=== PATIENT | male | born 1955 | race African-American/Black ===

== ENCOUNTER 2020-08-06 00:50 | Inpatient (IN) | payer OTHER, MEDICAID ==
[~2020-08-06] VITALS: Ht 170.2 cm; Wt 81.9 kg
--- NOTE | 2020-08-06 00:50 | NUR ---
Telemetry admit from ER JOSEF TRAN admitted to Telemetry unit after report received from GRAHAM Brown from [facility]. Patient oriented to Maryellen Messina, primary RN, unit, room, bed, and unit policies regarding patient care and visiting hours. Patient now refusing continuous telemetry monitoring, tele box # and telemetry reading on arrival to unit is . Patient placed on bedside oxygen, weighed by bedscale and encouraged to call if they need something. All questions and concerns addressed, patient verbalized understanding. Note:
[2020-08-06] MEDS ORDERED: DOCUSATE SOD 100 MG CAP PO PRN (01:15)
[2020-08-06] MEDS ORDERED: NITROGLYCERIN 0.4 MG SL TAB SL PRN (01:15)
[2020-08-06] MEDS ORDERED: MILK OF MAGNESIA 30ML SUSP PO PRN (01:15)
[2020-08-06] MEDS ORDERED: TEMAZEPAM 15 MG CAP PO PRN (01:15)
[2020-08-06] MEDS ORDERED: MORPHINE SULF INJ 2 MG/ML SYRINGE 1ML IV PRN ×2 (01:15)
[2020-08-06] MEDS ORDERED: DEXTROSE (50%) 50ML SYRG IV PRN (01:15)
[2020-08-06 02:00] VITALS: BP 149/72
[2020-08-06] MEDS ORDERED: SOD CHL 0.45% 1,000 ML IV SCH (02:00)
[2020-08-06] MEDS ORDERED: hydrALAZINE HCL 20 MG/ML VL IV SCH (02:00)
--- NOTE | 2020-08-06 02:00 | NUR ---
Patient refusing to sign consents at this time. EKG not done due to patient refusing procedure. Care continued.
[2020-08-06] MEDS ORDERED: DYA375C PO (02:28)
[2020-08-06] MEDS ORDERED: METF-370 PO (02:28)
[2020-08-06] MEDS ORDERED: BENA40TA7 PO (02:28)
[2020-08-06] MEDS ORDERED: hydrALAZINE HCL 20 MG/ML VL IV PRN (02:30)
[2020-08-06] MEDS ORDERED: INFLUENZA QUAD 2020-2021 0.5 ML SYRG IM ONE (02:30)
--- NOTE | 2020-08-06 02:30 | NUR ---
Patient lying comfortably in bed, HOB>30, watching TV. Patient refusing blood draw at this time. Patient informed/ re-educated regarding the importance of the procedures that needs to be done, patient still refused. Care continued.
[2020-08-06 05:00] VITALS: BP 138/70
[2020-08-06] MEDS: FUROSEMIDE 20 MG/2 ML VIAL IV SCH ×2 (06:04→17:56)
--- NOTE | 2020-08-06 06:05 | NUR ---
Blood drawn via central line. Stenotypist sent blood to lab right away per request for patient pre-op scheduled today at 0800. Care continued.
[2020-08-06] MEDS: InsuLIN REG 1unit/0.01ml Soln (100units/ml) SC SCH ×4 (06:53→22:20)
--- NOTE | 2020-08-06 06:59 | NUR ---
Called lab to follow-up since blood drawn was not processed yet. Spoke to Rachel, updated her that patient is pre-op, surgery is scheduled today at 0800. Rachel verbalized understanding. Report will be given to oncoming RN.
[2020-08-06] MEDS ORDERED: ACCU-CHEK COMFORT CURVE STRIP VI SCH (07:00)
[2020-08-06 07:22] LABS: INR 1.03 (0.9-1.15); Partial Thromboplastin Time 29.3 sec (23.0-31.2)
[2020-08-06 07:25] LABS: Basophils # (auto) 0 10 ^3/uL (0-0.2); Basophils % (auto) 1.1 % (0.0-2.0); Eosinophils # (auto) 0.1 10 ^3/uL (0-0.8); Eosinophils % (auto) 2.4 % (0.0-7.0); Hematocrit 39.4 % (41.0-53.0); Hemoglobin 13.6 g/dL (13.5-17.5); Lymphocytes # (auto) 1.8 10 ^3/uL (0.4-5.4); Lymphocytes % (auto) 40.3 % (10.0-50.0); Mean Corpuscular Hemoglobin 33.2 pg (28.0-32.0); Mean Corpuscular Hgb Conc. 34.5 g/dL (32.0-36.0); Mean Corpuscular Volume 96.3 fL (80.0-100.0); Monocytes # (auto) 0.4 10 ^3/uL (0-1.3); Monocytes % (auto) 8.2 % (0.0-12.0); Neutrophils # (auto) 2.1 10 ^3/uL (1.6-8.6); Nucleated Red Blood Cells % 0.1 %; Platelet Count (auto) 183 10^3/uL (140-450); Red Blood Cells 4.09 10^6/uL (4.5-5.90); Red Cell Distribution Width 15.2 % (11.8-14.3); White Blood Cell 4.5 10^3/uL (4.4-10.8)
--- NOTE | 2020-08-06 07:30 | NUR ---
Opening Shift Note Assumed care of patient, awake and alert. Respirations are even and unlabored. No S/S of distress/SOB or pain. Bed is low, locked with 2x side rails up. Call light is within reach. Instructed on POC and to call for assist PRN, will continue to monitor for changes Q1hr and PRN.
--- NOTE | 2020-08-06 07:32 | NUR ---
Patient off unit Patient taken to cathode washer for scheduled procedure with Dr. Manuelito Young. No distress noted upon departure.
[2020-08-06 07:54] LABS: Calcium 8.2 mg/dL (8.5-10.1); Potassium 3.5 mmol/L (3.5-5.1)
[2020-08-06 07:56] LABS: BUN/Creatinine Ratio 16.3
[2020-08-06] MEDS ORDERED: IOHEXOL 350 MG/ML 100ML IJ ONE (08:13)
[2020-08-06] MEDS ORDERED: MIDAZOLAM HCL 1MG/1ML-2 ML VIAL ONE (08:13)
[2020-08-06] MEDS ORDERED: LIDOCAINE 2%HCL (LOCAL ANESTH.) INJ 20ML MDV ONE ×3 (08:13→08:37)
[2020-08-06] MEDS ORDERED: SODIUM CHL 0.9% 50 ML ONE ×2 (08:13→09:32)
[2020-08-06] MEDS ORDERED: ANGIOMAX 250 MG VIAL IV ONE ×2 (08:13→09:32)
[2020-08-06] MEDS ORDERED: fentaNYL CITRATE 100 MCG/2 ML VL ONE ×2 (08:13→09:41)
[2020-08-06] MEDS ORDERED: IODIXANOL 320MG/ML 100ML BTL IV ONE ×2 (08:22→09:50)
[2020-08-06] MEDS ORDERED: HEPARIN SODIUM (PORCINE) 5000 UNITS/ML 1ML VIAL ONE (08:55)
[2020-08-06] MEDS ORDERED: VERAPAMIL 2.5MG/ML INJ 2ML VIAL IV ONE (08:55)
[2020-08-06] MEDS ORDERED: ATROPINE SULF 1 MG/10ml SYR ONE (09:01)
[2020-08-06] MEDS ORDERED: ASPirin 325 MG TAB ONE (09:58)
[2020-08-06] MEDS ORDERED: CLOPIDOGREL 300 MG TAB ONE (09:58)
[2020-08-06] MEDS ORDERED: VANCOMYCIN 1GM/250ML 250 ML IV ONE ×2 (10:30→10:34)
[2020-08-06] MEDS ORDERED: METF-929 PO (11:04)
--- NOTE | 2020-08-06 11:45 | NUR ---
Patient back on unit S/p LHC with Carlee Young. Noted incision to right groin with dressing C/D/I. Also noted incision to right wrist with vasc band in place. Patient alert and oriented. Bed is low, locked with 2 side rails up. Call light is within reach. This nurse to round Q1hr and PRN.
--- NOTE | 2020-08-06 11:50 | NUR ---
[facility] to send up [facility].
[2020-08-06] MEDS: SOD CHL 0.45% 1,000 ML IV SCH (11:56)
[2020-08-06] MEDS: ACCU-CHEK COMFORT CURVE STRIP VI SCH ×3 (12:09→22:13)
[2020-08-06] MEDS: NIFEdipine ER 30 MG TAB PO SCH ×2 (12:09→22:06)
[2020-08-06] MEDS: FLUTICASONE PROP NASAL SPR 0.05 % (50MCG) 16GM EACHNOSTRI SCH ×2 (12:55→22:05)
[2020-08-06 13:00] VITALS: BP 164/60
--- NOTE | 2020-08-06 13:45 | NUR ---
Vasc band Vasc band completely deflated. Noted incision to right wrist. No bleeding/hematoma noted. Placed gauze with tegaderm. Also noted incision to right groin. Dressing C/D/I. Patient aware of restrictions. This nurse to round Q1hr and PRN.
[2020-08-06 17:00] VITALS: BP 152/66
--- NOTE | 2020-08-06 19:00 | NUR ---
Opening Shift Note Assumed care of patient, awake and alert. No S/S of distress/SOB or pain. Instructed on POC and to call for assist PRN, will continue to monitor for changes Q1hr and PRN.
--- NOTE | 2020-08-06 19:13 | NUR ---
MRSA swab Sent to lab via bullet system by this RN.
[2020-08-06] MEDS: HYDROcodone-ACET 5/325MG TAB PO PRN (19:54)
[2020-08-06 22:00] VITALS: BP 119/60
[2020-08-07] MEDS: HYDROcodone-ACET 5/325MG TAB PO PRN ×3 (00:53→20:07)
[2020-08-07] MEDS: SOD CHL 0.45% 1,000 ML IV SCH (01:03)
[2020-08-07 05:33] VITALS: BP 133/52
[2020-08-07 06:26] LABS: Potassium 3.6 mmol/L (3.5-5.1)
[2020-08-07 06:32] LABS: BUN/Creatinine Ratio 15.8; Calcium 8.4 mg/dL (8.5-10.1)
[2020-08-07] MEDS: FUROSEMIDE 20 MG/2 ML VIAL IV SCH ×2 (06:42→17:40)
[2020-08-07] MEDS: InsuLIN REG 1unit/0.01ml Soln (100units/ml) SC SCH ×4 (07:00→21:32)
[2020-08-07] MEDS: ACCU-CHEK COMFORT CURVE STRIP VI SCH ×4 (07:18→21:28)
[2020-08-07 09:00] VITALS: BP 143/55
[2020-08-07] MEDS: ASPirin 81 mg TAB PO SCH (09:31)
[2020-08-07] MEDS: ENOXAPARIN SOD 40 MG/0.4 ML SYRINGE SC SCH (09:31)
[2020-08-07] MEDS: ATORVASTATIN 20 MG TAB PO SCH (09:31)
[2020-08-07] MEDS: CLOPIDOGREL BISULFATE 75 MG TAB PO SCH (09:32)
[2020-08-07] MEDS: NIFEdipine ER 30 MG TAB PO SCH ×2 (09:32→21:28)
[2020-08-07] MEDS: FLUTICASONE PROP NASAL SPR 0.05 % (50MCG) 16GM EACHNOSTRI SCH ×2 (09:41→21:28)
[2020-08-07 13:00] VITALS: BP 138/61
[2020-08-07 16:59] VITALS: BP 153/58
--- NOTE | 2020-08-07 19:22 | NUR ---
Endorsed care Informed NOC RN that this nurse received a call from geophysical laboratory director at approximately 1700. Per geophysical laboratory director, patient has LHC tomorrow morning at 0700 with Carlee Young. Patient agrees to sign consents. Care endorsed.
--- NOTE | 2020-08-07 19:30 | NUR ---
Opening Shift Note Assumed care of patient, awake and alert. No S/S of distress/SOB, patient complains of pain in his neck, back, and leg, medication to be given per protocol, will continue to monitor patient. Instructed on POC and to call for assist PRN, will continue to monitor for changes Q1hr and PRN. Patient in the lowest possible position with call light within reach.
--- NOTE | 2020-08-07 20:00 | NUR ---
Patient wishes to speak to MD before signing consents, patient states that he has questions he would like addressed, consents to be signed later. Will continue to monitor patient.
[2020-08-07 22:00] VITALS: BP 154/77
--- NOTE | 2020-08-08 01:44 | NUR ---
MD spoke with patient, patient had questions answered, consents signed. Patient is ready for his AM procedure.
--- NOTE | 2020-08-08 03:49 | NUR ---
patient cleaned and linens changed for procedure. Will continue to monitor.
[2020-08-08 05:00] VITALS: BP 132/74
[2020-08-08] MEDS: FUROSEMIDE 20 MG/2 ML VIAL IV SCH ×2 (05:49→17:03)
[2020-08-08 06:05] LABS: Basophils # (auto) 0 10 ^3/uL (0-0.2); Basophils % (auto) 0.8 % (0.0-2.0); Eosinophils # (auto) 0.2 10 ^3/uL (0-0.8); Eosinophils % (auto) 5.2 % (0.0-7.0); Hemoglobin 13.2 g/dL (13.5-17.5); Lymphocytes # (auto) 1.2 10 ^3/uL (0.4-5.4); Mean Corpuscular Hemoglobin 32.8 pg (28.0-32.0); Mean Corpuscular Hgb Conc. 33.9 g/dL (32.0-36.0); Mean Corpuscular Volume 96.8 fL (80.0-100.0); Monocytes # (auto) 0.3 10 ^3/uL (0-1.3); Monocytes % (auto) 7.5 % (0.0-12.0); Neutrophils # (auto) 2.3 10 ^3/uL (1.6-8.6); Neutrophils % (auto) 57.5 % (37.0-80.0); Nucleated Red Blood Cells % 0.2 %; Platelet Count (auto) 177 10^3/uL (140-450); Red Blood Cells 4.03 10^6/uL (4.5-5.90); Red Cell Distribution Width 15.1 % (11.8-14.3); White Blood Cell 4.1 10^3/uL (4.4-10.8)
[2020-08-08] MEDS: InsuLIN REG 1unit/0.01ml Soln (100units/ml) SC SCH ×4 (06:14→21:46)
[2020-08-08] MEDS: ACCU-CHEK COMFORT CURVE STRIP VI SCH ×4 (06:14→21:42)
[2020-08-08 06:16] LABS: INR 1.04 (0.9-1.15); Partial Thromboplastin Time 27.6 sec (23.0-31.2)
[2020-08-08 06:23] LABS: BUN/Creatinine Ratio 17.7; Calcium 8.6 mg/dL (8.5-10.1); Potassium 3.7 mmol/L (3.5-5.1)
--- NOTE | 2020-08-08 07:27 | NUR ---
Patient left to quality assurance qa lab analyst.
[2020-08-08] MEDS ORDERED: IOHEXOL 350 MG/ML 100ML IJ ONE ×2 (07:33→08:40)
[2020-08-08] MEDS ORDERED: LIDOCAINE 2%HCL (LOCAL ANESTH.) INJ 20ML MDV ONE (07:34)
[2020-08-08] MEDS ORDERED: fentaNYL CITRATE 100 MCG/2 ML VL ONE (07:58)
[2020-08-08] MEDS ORDERED: ANGIOMAX 250 MG VIAL IV ONE ×2 (07:58→09:18)
[2020-08-08] MEDS ORDERED: SODIUM CHL 0.9% 50 ML ONE ×2 (07:58→09:18)
[2020-08-08] MEDS ORDERED: MIDAZOLAM HCL 1MG/1ML-2 ML VIAL ONE (07:58)
[2020-08-08] MEDS ORDERED: HEPARIN SODIUM (PORCINE) 5000 UNITS/ML 1ML VIAL ONE (07:59)
[2020-08-08] MEDS ORDERED: VERAPAMIL 2.5MG/ML INJ 2ML VIAL IV ONE (07:59)
[2020-08-08] MEDS: ENOXAPARIN SOD 40 MG/0.4 ML SYRINGE SC SCH (08:41)
[2020-08-08] MEDS ORDERED: CLOPIDOGREL BISULFATE 75 MG TAB ONE (09:18)
[2020-08-08] MEDS ORDERED: ASPirin 81 mg TAB ONE (09:18)
[2020-08-08] MEDS: ASPirin 81 mg TAB PO SCH (10:00)
[2020-08-08] MEDS: CLOPIDOGREL BISULFATE 75 MG TAB PO SCH (10:00)
[2020-08-08] MEDS: METOPROLOL TARTRATE 25 MG TAB PO SCH ×2 (10:00→21:34)
[2020-08-08] MEDS: NIFEdipine ER 30 MG TAB PO SCH ×2 (11:07→21:42)
[2020-08-08] MEDS: HYDROcodone-ACET 5/325MG TAB PO PRN ×2 (11:07→17:03)
[2020-08-08] MEDS: ATORVASTATIN 20 MG TAB PO SCH (11:08)
[2020-08-08 11:30] VITALS: BP 161/76
--- NOTE | 2020-08-08 11:38 | NUR ---
Patient came back from laboratory administrative director. Awake, alert and oriented x 4 and verbal responsive. Catheterization site to right wrist assessed for any bleeding, redness or swelling. Patient instructed on need to notify staff immediately if any pain, burning or wetness to site. Skin is warm and dry to touch. No respiratory distress noted. All questions and concerns addressed, patient verbalized understanding of all education and instruction.
[2020-08-08] MEDS: FLUTICASONE PROP NASAL SPR 0.05 % (50MCG) 16GM EACHNOSTRI SCH ×2 (11:59→21:41)
[2020-08-08 12:25] VITALS: BP 138/61
--- NOTE | 2020-08-08 13:31 | NUR ---
Assessment This is a 65-year-old male, who is alert and oriented. Patient cognitive abilities are intact. Patient stated that he can do all ADLs independently and ambulate independently with his prosthetic left leg. Patient stated that he lives with his daughter (Rody Sims [phone]). Patient stated that he has a wheelchair at home. Patient stated that he will return home post discharge from [facility], his daughter will provide transportation. Patient stated that he receptive to receive Advance Directive forms to fill out. Discharge planning: SW has provide Advance Directive to patient. Patient has no post discharge needs to identify. Addendum: 08/08/20 at 1334 by TAZ CAMPOS Amended: Links added.
[2020-08-08 17:10] VITALS: BP 157/65
--- NOTE | 2020-08-08 19:30 | NUR ---
OPENING SHIFT NOTE Assumed care of patient who is A&O x4. Currently on RA with no s/s of distress. Right triple lumen IJ in place. All lumens patent and flushed with 10ml NS. Camejo catheter in place. Tubing secured to leg and free from kinks. Collection bag hung below the level of the bladder and draining clear yellow urine to gravity. Patient has Left BKA. Dressing to right wrist catheter access site. No bleeding or hematoma noted. Patient reports minor pain to the area. Pulse is present and patient able to move hand and fingers without difficulty. POC discussed and patient verbalizes understanding. Bed is in low locked position with side rails up x2. Call light is within reach and patient encouraged to call for assistance when needed. Will continue to monitor for changes PRN.
[2020-08-08 20:00] VITALS: BP 164/57
[2020-08-08 22:00] VITALS: BP 164/57
[2020-08-09 05:00] VITALS: BP 153/64
[2020-08-09] MEDS: FUROSEMIDE 20 MG/2 ML VIAL IV SCH (06:25)
[2020-08-09] MEDS: ACCU-CHEK COMFORT CURVE STRIP VI SCH ×3 (06:26→17:00)
[2020-08-09] MEDS: InsuLIN REG 1unit/0.01ml Soln (100units/ml) SC SCH ×3 (06:27→17:00)
[2020-08-09] MEDS: HYDROcodone-ACET 5/325MG TAB PO PRN (07:33)
[2020-08-09] MEDS: METOPROLOL TARTRATE 25 MG TAB PO SCH (09:12)
[2020-08-09] MEDS: FLUTICASONE PROP NASAL SPR 0.05 % (50MCG) 16GM EACHNOSTRI SCH (09:27)
[2020-08-09] MEDS: ASPirin 81 mg TAB PO SCH (09:28)
[2020-08-09] MEDS: ATORVASTATIN 20 MG TAB PO SCH (09:28)
[2020-08-09] MEDS: CLOPIDOGREL BISULFATE 75 MG TAB PO SCH (09:34)
[2020-08-09] MEDS: NIFEdipine ER 30 MG TAB PO SCH (09:34)
[2020-08-09] MEDS: ENOXAPARIN SOD 40 MG/0.4 ML SYRINGE SC SCH (09:40)
--- NOTE | 2020-08-09 09:45 | NUR ---
Dr. Manuelito Young paged regarding Camejo catheter and Metoprolol med, awaiting to call back.
[2020-08-09 09:57] VITALS: BP_SYST 117; BP_SYST 148; BP_DIAS 102; BP_DIAS 67
[2020-08-09 10:00] VITALS: BP 145/68
--- NOTE | 2020-08-09 10:26 | NUR ---
Received a call from Dr. Manuelito Young to JUAN perry catheter and JUAN Metoprolol, noted and carried it out.
--- NOTE | 2020-08-09 10:27 | NUR ---
Dr. Manuelito Young aware of patient HR between 40-50s. Patient is cleared from Dr. Young.
--- NOTE | 2020-08-09 10:34 | NUR ---
Perry catheter dc'd Order to discontinue perry catheter. Perry dc'd with clean technique following deflation of balloon. Patient tolerated well with no complaints of pain. Continue care.
[2020-08-09 11:45] VITALS: BP 143/78
--- NOTE | 2020-08-09 14:43 | NUR ---
Patient urinated clear yellow urine.
--- NOTE | 2020-08-09 14:43 | NUR ---
Unable to read Dr. Manuelito Young script, spoke to stated it is Nifedipine 60 mg QD.
--- NOTE | 2020-08-09 17:50 | NUR ---
Discharge instructions given as ordered. Encourage to follow up with PMD (FOLLOW UP WITH PRIMARY CARE DOCTOR WITHIN 1 WEEK OR SCHEDULED. FOLLOW UP WITH PAINT MIXER MACHINE DR. Manuelito MERCER ([phone]) WITHIN 1 WEEK.) as instructed. All questions and concerns addressed. Patient verbalized understanding. Medication reconciliation form completed and copy given to patient. IV removed with catheter intact, pressure dressing applied, perry catheter removed. Telemetry unit returned to ICU. Patient taken to vehicle via wheelchair with all personal belongings, accompanied by staff and family member. No distress noted at time of departure.
== END 2020-08-09 17:50 | disposition home or self-care (01) | DRG 246 ==
LOC: TELE-CENTR 00:50
PROVIDERS: ADMIT Specialist; ATTEND Specialist
PROC: 027034Z Dilation of Coronary Artery, One Artery with Drug-eluting Intraluminal Device, Percutaneous Approach (ICD-10-PCS; principal; 2020-08-06)
PROC: 02C03ZZ Extirpation of Matter from Coronary Artery, One Artery, Percutaneous Approach (ICD-10-PCS; 2020-08-06)
PROC: 02HV33Z Insertion of Infusion Device into Superior Vena Cava, Percutaneous Approach (ICD-10-PCS; 2020-08-06)
PROC: B210YZZ Fluoroscopy of Single Coronary Artery using Other Contrast (ICD-10-PCS; 2020-08-06)
PROC: 03HY32Z Insertion of Monitoring Device into Upper Artery, Percutaneous Approach (ICD-10-PCS; 2020-08-06)
PROC: 027034Z Dilation of Coronary Artery, One Artery with Drug-eluting Intraluminal Device, Percutaneous Approach (ICD-10-PCS; 2020-08-08)
PROC: 02C03ZZ Extirpation of Matter from Coronary Artery, One Artery, Percutaneous Approach (ICD-10-PCS; 2020-08-08)
PROC: B210YZZ Fluoroscopy of Single Coronary Artery using Other Contrast (ICD-10-PCS; 2020-08-08)
PROC: 03HY32Z Insertion of Monitoring Device into Upper Artery, Percutaneous Approach (ICD-10-PCS; 2020-08-08)
DX: I25.110 Atherosclerotic heart disease of native coronary artery with unstable angina pectoris (principal); I50.33 Acute on chronic diastolic (congestive) heart failure; E11.51 Type 2 diabetes mellitus with diabetic peripheral angiopathy without gangrene; I11.0 Hypertensive heart disease with heart failure; Z87.891 Personal history of nicotine dependence; Z79.84 Long term (current) use of oral hypoglycemic drugs; Z87.01 Personal history of pneumonia (recurrent); Z89.512 Acquired absence of left leg below knee; Z88.0 Allergy status to penicillin; Z79.899 Other long term (current) drug therapy; Z83.3 Family history of diabetes mellitus
CPT/HCPCS: 36415; 71045; 80048; 82962; 85025; 85610; 85730; 87081; 92933; 93005; 93454; 99152; 99153; C1874; G0378; J1815; J2250; Q9967